=== PATIENT | female | born 1965 | race Caucasian/White ===

== ENCOUNTER 2017-05-22 08:08 | Day surgery (SDC) | payer OTHER ==
[2017-05-19 11:06] VITALS: BMI 24.3
[2017-05-22] MEDS ORDERED: PROPOFOL 20 ML ONE ×2 (08:20)
[2017-05-22] MEDS ORDERED: LIDOCAINE HCL/PF 2% SDV 5ML VIAL ONE (08:20)
[2017-05-22 10:00] VITALS: TEMP 97.7
[2017-05-22 10:33] VITALS: BP 111/62; PULSE 65
--- NOTE | 2017-05-24 15:48 | PATH ---
Surgical Pathology Report Patient Name: ELIS STRINGER [facility]. Rec. #: [id number] /Age/Gender: 1965 (Age: 52) / F Account: [id number] Location: Taken: 05/22/2017 Received: 05/22/2017 Reported: 05/24/2017 Physicians: Luke Callahan M.D. Specimen(s) Received BX DISTAL RIGHT COLON Clinical History Rule out colon cancer Polyp Final Diagnosis DISTAL RIGHT COLON, BIOPSY: HYPERPLASTIC POLYP. Electronically Signed Amber Young M.D. Gross Description Received in formalin, labeled "distal right colon" is a fall, irregular portion of soft tissue measuring 0.3 cm. in greatest dimension. The specimen is submitted in toto in one cassette. 05/23/2017 [facility]05/23/2017
== END 2017-05-22 10:40 | disposition home or self-care (01) ==
LOC: FASU-ENDO 08:08
PROVIDERS: ATTEND Internal Medicine Gastroenterology
PROC: 0DBK8ZX Excision of Ascending Colon, Via Natural or Artificial Opening Endoscopic, Diagnostic (ICD-10-PCS; principal; 2017-05-22 09:23)
DX: Z12.11 Encounter for screening for malignant neoplasm of colon (principal); Z83.71 Family history of colonic polyps; D12.2 Benign neoplasm of ascending colon; K57.30 Diverticulosis of large intestine without perforation or abscess without bleeding
CPT/HCPCS: 84703; 88305-TC